=== PATIENT | female | born 1940 | race Caucasian/White ===

== ENCOUNTER → 2017-01-19 | Outpatient (CLI) | payer OTHER | LOC: RAD 13:00 | DX: M25.551 Pain in right hip (principal) ==

== ENCOUNTER → 2018-09-24 | Outpatient (CLI) | payer OTHER ==
[~2018-09-24] VITALS: Ht 160 cm; Wt 89.8 kg
[~2018-09-24] MED LIST: COZAAR 25 MG TA25 M1 PO; DEMADEX20 MG PO; KLOR-CON 10 ER10 MEQ PO; OTEZLA30 MG PO; SINGULAIR 10 MG10 M1 PO; TRAMADOL 50 MG50 MG PO; TRELEGY ELLIPT1 EACH PO
[2018-09-24 13:12] VITALS: BP 114/61
--- NOTE | 2018-09-24 13:26 | NUR ---
Pain Clinic Assessment: 1. History of Osteoarthritis: BACK History of Rheumatoid Arthritis: Not Applicable 2. Height: 5 ft. 3 in. 160.0 cm. Weight: 198.0 lb. oz. 89.812 kg. Patient's BMI: 35.1 3. Vital Signs: BP: 114/61 Pulse: 76 Resp: 18 Temp: 02 Sat: 99 ECG Mon: 4. Pain Intensity: 5 5. Fall Risk: Dizziness: N Needs help standing or walking: N Fallen in the last 3 months: N Fall risk comments: 6. Patient on Blood Thinner: None 7. History of Hypertension: Y 8. Opioid Therapy greater than 6 weeks: N Opiate Contract Signed: 9. Risk Assessment Tool Provided: LOW-0 10. Functional Assessment Tool: 11. Recreational Drug Use: Never Drug Type: Tobacco Use: Former Smoker Tobacco Type: Amount or Packs/day: How Many Years: Alcohol Use: No Frequency: Quant:
--- NOTE | 2018-10-08 08:11 | HPC ---
[facility] [address] [address] PAIN MANAGEMENT CONSULTATION Name: NETTA MCDONNELL Room #: REG CL MLeonel.#: [id number] Admission: 09/24/18 ������������������ Attend Phys: Abhishek Lombadro DO Discharge: ������������������ Date of : 42 Report #: [id number] THIS REPORT FOR: //name// CC: Deion Muñiz MD DATE OF SERVICE: 09/24/2018 CHIEF COMPLAINT: Low back pain. HISTORY OF PRESENT ILLNESS: As you know, the patient is a pleasant 78-year-old female with 3-year history of low back pain and intermittent lower extremity symptoms. She indicates no injury or trauma that may have led to symptom occurrence. She has undergone various evaluations, the most recent was an arterial evaluation of the lower extremities. Apparently, this was negative for any concerning pathology. The patient trialed conservative treatment for her axial back pain issues, but did not note improvement in symptoms. Due to lack of improvement with conservative treatment, the patient was then sent to undergo MRI of the lumbar spine. The MRI showed degenerative changes of the thoracolumbar area with no high grade central canal stenosis. There was moderate to moderate severe neural foraminal narrowing noted at the L4-L5 and L5-S1 level. The patient did not see improvement in symptoms with conservative treatment and thus, the patient was referred to our clinic. The patient reports today, pain is continuous and constant, describes the pain as burning, shooting, aching, throbbing, sharp, numbness and tingling. Places current pain score at 5/10, daily average of 5+/10, worst pain has been 10/10. The patient states pain is exacerbated with walking or bending over, improves with sitting down. She did have some physical therapy, which did improve her symptoms, but unfortunately, she stopped this activity and her pain returned. She has not restarted her physical therapy. The patient has been referred to our service to discuss treatment options for possible lumbar radiculopathy. PAST MEDICAL HISTORY: 1. Essential hypertension. 2. Obesity. 3. Asthma. 4. Seasonal allergies. 5. Chronic low back pain. PAST SURGICAL HISTORY: 1. Bladder surgery. 2. Hysterectomy. 3. Cholecystectomy. [facility] [address] [place] [address] PAIN MANAGEMENT CONSULTATION Name: NETTA MCDONNELL MORENITA Room #: REG [facility]..#: [id number] Admission: 09/24/18 ������������������ Attend Phys: Abhishek Lombardo DO Discharge: ������������������ Date of : 42 Report #: [id number] SOCIAL HISTORY: The patient is a reformed smoker, 1 pack of tobacco per day for nearly 40 years. She denies IV or illicit drug use. She is not admitting to any alcohol use. She retired about 1-1/2 years ago, not receiving workmen's compensation nor is she trying to obtain disability benefits. She is accompanied by family member present in room. REVIEW OF SYSTEMS: Positive for wearing corrective eyewear, shortness of breath walking or lying flat, asthma, wheezing, low back pain, lower extremity pain with intermittent paresthesias, hypertension, seasonal allergies. All other review of systems negative per 12-point review of systems other than those listed in history of present illness. Pain impact score 42/70 indicating moderate to severe interference of daily activities secondary to pain. ALLERGIES: PENICILLIN AND CODEINE. CURRENT MEDICATIONS: Fluticasone 1 spray each nostril per day, potassium chloride 10 mEq p.o. q. day, Otezla 30 mg once a day, torsemide 20 mg per day, losartan 25 mg per day, montelukast sodium 10 mg per day. IMAGING: MRI of lumbar spine obtained on 09/13/2018 shows L1-L2 with posterior disk bulge noted with bilateral facet arthrosis, no high grade central canal neural foraminal stenosis. L2-L3 bilateral facet arthropathy, ligamentum flavum hypertrophy, prominence of epidural fat, no significant central canal, mild neural foraminal stenosis. L3-L4 disk bulge noted with prominent posterior component, bilateral facet arthrosis, ligamentum flavum hypertrophy, prominence of the posterior epidural fat, no significant central canal stenosis, mild bilateral neural foraminal narrowing. L4-L5 facet arthropathy, ligamentum flavum hypertrophy, mild prominence of posterior epidural fat, no high grade central canal stenosis, moderate bilateral neural foraminal stenosis. L5-S1, bilateral facet arthropathy, prominent disk bulge, ligamentum flavum hypertrophy resulting in no significant central canal, but moderate to severe neural foraminal narrowing. PQRS, the patient has known osteoarthritic changes of the lumbar spine, bilateral hips. No rheumatoid arthritis. She is placing pain intensity at 5/10. She is not a fall risk, has not had fallen in the last 3 months. She is not on blood thinners. She is treated for hypertension. She is not on chronic opioids, but does have a low opioid addiction potential. Pain impact score 42/70, moderate to severe interference of daily activities secondary to pain. PHYSICAL EXAMINATION: VITAL SIGNS: Blood pressure 114/61, pulse 76, respiratory rate 18 and unlabored. The patient is 99% on room air. Height 5 feet 3 inches tall, weight [facility] [address] [place] [address] PAIN MANAGEMENT CONSULTATION Name: NETTA MCDONNELL Room #: REG LEISA Clarke#: [id number] Admission: 09/24/18 ������������������ Attend Phys: Abhishek Lombardo DO Discharge: ������������������ Date of : 41 Report #: [id number] 198 pounds, BMI calculated 35.1. GENERAL: Well-developed, well-nourished, well-hydrated exogenously obese 78-year-old female, appearing stated age, placing current pain score at 5/10. HEENT: Normocephalic, atraumatic. Pupils equal, round, reactive to light. Extraocular muscles are intact. Sclerae nonicteric without injection. NEUROLOGIC: Cranial nerves 2-12 grossly intact. Speech fluent. The patient deemed a good historian. LUNGS: Clear. No wheeze, rhonchi or rales. CARDIOVASCULAR: Regular. No appreciable gallop, no rub. ABDOMEN: Soft, obese, normoactive bowel sounds. EXTREMITIES: Show no clubbing, no cyanosis and no edema. MUSCULOSKELETAL: Lower extremity strength is symmetrical 5/5, intact to light touch from L1 through S2 dermatomes. Seated straight leg raising negative. Supine straight leg raising negative. Bismark's test negative. Modified Gaenslen's positive for axial low back pain. Ankle clonus negative. Babinski is negative. Lumbar provocation testing including extension, rotation, lateral flexion all met with increasing pain, mild restriction of motion. ASSESSMENT: 1. Lumbosacral spondylosis without radiculopathy. 2. Facet arthropathy of the lumbar spine. 3. Myofascial pain. 4. Chronic intractable pain. PLAN: 1. The patient has been referred to our service by her primary care physician, Dr. Muñiz for evaluation. It does appear by physical exam, history she provides, distribution of symptoms and the findings of her MRI that the source of her symptoms is myofascial and facet arthropathy related. I am unable to elicit any lumbar radicular symptoms today. The description of her symptoms do not appear to have any neuropathic component to them in the recent past. We have discussed with the patient treatment options for facet arthropathy pain. These would include the following treatments. We discussed physical therapy, stretching exercises and core strengthening in a formalized fashion. This would help the patient immensely and improve her overall symptoms as well as strengthen her core. This will also help with potential weight loss, which can improve the patient's overall pain. We discussed medication management having the patient initiate on a nonsteroidal anti-inflammatory and possibly some type of low dose opioid or muscle relaxant to assist with myofascial pain. We discussed treatments from an interventional standpoint including intra-articular facet injections, medial branch nerve blocks and radiofrequency lesioning. We also discussed surgical options, though at this point, I would not recommend the patient undergo surgery. After reviewing the risks and benefits of all proposed treatment options, the patient chose to begin with physical therapy. [address] [address] PAIN MANAGEMENT CONSULTATION Name: NETTA MCDONNELL MORENITA Room #: REG CLGema Clarke#: [id number] Admission: 09/24/18 ������������������ Attend Phys: Abhishek Lombardo DO Discharge: ������������������ Date of : 41 Report #: [id number] The patient was provided a prescription for physical therapy twice a week for 6 weeks. She will begin this treatment with modalities such as electrical stimulation, traction unit, TENS and ultrasound. She will begin the physical therapy as quickly as possible. She was given in written form the physical therapy to begin near her home for convenience. 2. We have provided the patient with a prescription of tramadol 50 mg dose 1 tablet p.o. q. 4 hours p.r.n. for pain. I have given the patient #90 tablets. She can follow up with Dr. Muñiz to continue this therapy if she finds it beneficial. 3. We will see the patient back in followup visit on an as needed basis. We are hopeful the physical therapy and tramadol medications provide good benefit. We will see her back if interventional treatments are necessary. We wish her well in hopes that she sees significant pain improvement. 4. We wish to thank Dr. Muñiz for the referral of the patient to our clinic. We will keep you apprised of her response to treatment as we address facet arthropathy pain. Again, we wish to thank you for the opportunity to see this patient in consultation. ��������������������������������������������� <ELECTRONICALLY SIGNED> ���������������������������������������� By: Abhishek Lombardo DO ��������������������������������������������� 10/08/18 0811 [id number] Abhishek Lombardo DO /nt
== END ==
LOC: PAIN 06:49
DX: M47.27 Other spondylosis with radiculopathy, lumbosacral region (principal); G89.4 Chronic pain syndrome; Z79.891 Long term (current) use of opiate analgesic; Z79.899 Other long term (current) drug therapy

== ENCOUNTER → 2019-12-15 | Outpatient (CLI) | payer OTHER ==
[~2019-12-15] VITALS: Ht 160 cm; Wt 83.9 kg
[~2019-12-15] MED LIST changes: +VITAMIN D325 MC1 PO
== END | disposition home or self-care (01) ==
LOC: GI 10:05
PROVIDERS: ATTEND Internal Medicine Gastroenterology
DX: D50.9 Iron deficiency anemia, unspecified (principal); K63.5 Polyp of colon; K57.30 Diverticulosis of large intestine without perforation or abscess without bleeding; K31.89 Other diseases of stomach and duodenum; K44.9 Diaphragmatic hernia without obstruction or gangrene; J43.9 Emphysema, unspecified; D64.9 Anemia, unspecified; I50.9 Heart failure, unspecified; Z98.890 Other specified postprocedural states; Z79.899 Other long term (current) drug therapy; Z87.19 Personal history of other diseases of the digestive system; Z85.41 Personal history of malignant neoplasm of cervix uteri; Z88.0 Allergy status to penicillin; Z88.8 Allergy status to other drugs, medicaments and biological substances; Z87.891 Personal history of nicotine dependence
CPT/HCPCS: 62110; 62900

== ENCOUNTER → 2020-12-28 | Outpatient (CLI) | payer OTHER | LOC: SJCVC 12:58 | PROVIDERS: ATTEND Internal Medicine | DX: I11.0 Hypertensive heart disease with heart failure (principal); I50.32 Chronic diastolic (congestive) heart failure; J45.909 Unspecified asthma, uncomplicated; E78.5 Hyperlipidemia, unspecified; D50.9 Iron deficiency anemia, unspecified; J44.9 Chronic obstructive pulmonary disease, unspecified; Z87.891 Personal history of nicotine dependence; Z79.899 Other long term (current) drug therapy; Z88.5 Allergy status to narcotic agent; Z88.0 Allergy status to penicillin ==